=== PATIENT | male | born 1950 | race Caucasian/White ===

== ENCOUNTER 2020-02-20 09:27 | Outpatient (CLI) | payer OTHER | END 2020-02-20 09:29 | disposition home or self-care (01) | LOC: RAD 09:27 | DX: N34.3 Urethral syndrome, unspecified (principal) | CPT/HCPCS: 51600; 74455; Q9958 ==

== ENCOUNTER 2020-03-06 10:41 | Outpatient (CLI) | payer OTHER ==
[2020-03-06] MEDS ORDERED: EZALLOR SPRINKL10 MG PO (12:55)
[2020-03-06] MEDS ORDERED: ZESTRIL20 MG PO (12:55)
[2020-03-06] MEDS ORDERED: FENOFIBRATE150 MG PO (12:55)
[2020-03-06] MEDS ORDERED: SYNTHROID75 MCG PO (12:55)
[2020-03-06] MEDS ORDERED: HYDROCHLOROTHIA25 MG PO (12:56)
[2020-03-06] MEDS ORDERED: GLYXAMBI 25 MG1 EACH PO (12:56)
[2020-03-06] MEDS ORDERED: ASPIR 8181 MG PO (12:56)
== END 2020-03-06 15:00 | disposition home or self-care (01) ==
LOC: LAB 10:41
DX: D68.8 Other specified coagulation defects (principal); R05 Cough; R06.02 Shortness of breath; B96.29 Other Escherichia coli [E. coli] as the cause of diseases classified elsewhere

== ENCOUNTER → 2020-03-12 | Day surgery (SDC) | payer OTHER ==
[~2020-03-12] MED LIST: ASPIR 8181 MG PO; EZALLOR SPRINKL10 MG PO; FENOFIBRATE150 MG PO; GLYXAMBI 25 MG1 EACH PO; HYDROCHLOROTHIA25 MG PO; SYNTHROID75 MCG PO; ZESTRIL20 MG PO
== END | disposition home or self-care (01) ==
LOC: CIR.AMB 05:54
PROVIDERS: ATTEND Urology
DX: N35.011 Post-traumatic bulbous urethral stricture (principal)

== ENCOUNTER → 2020-09-01 11:23 | Outpatient (CLI) | payer OTHER | END | disposition home or self-care (01) | LOC: LAB 11:23 → EDSEX 11:23 | PROVIDERS: ATTEND Urology | DX: N30.00 Acute cystitis without hematuria (principal) ==

== ENCOUNTER 2020-09-12 13:06 | Outpatient (CLI) | payer OTHER | END 2020-09-12 13:13 | disposition home or self-care (01) | LOC: LAB 13:06 | PROVIDERS: ATTEND Urology | DX: N30.00 Acute cystitis without hematuria (principal) ==